=== PATIENT | female | born 1995 | race Caucasian/White ===

== ENCOUNTER 2016-08-15 09:41 | Emergency (ER) | payer OTHER ==
[~2016-08-15] VITALS: Ht 172.7 cm; Wt 77.1 kg
[2016-08-15 10:41] VITALS: BP 110/75
[2016-08-15] MEDS ORDERED: HYDROcodone-ACET 5/325MG TAB PO ONE (12:45)
== END 2016-08-15 16:00 | disposition home or self-care (01) ==
LOC: ER 09:42
DX: S40.012A Contusion of left shoulder, initial encounter (principal); M62.838 Other muscle spasm; S00.03XA Contusion of scalp, initial encounter; R51 Headache; R07.0 Pain in throat; M79.601 Pain in right arm; V43.52XA Car driver injured in collision with other type car in traffic accident, initial encounter; Y93.89 Activity, other specified; Y99.8 Other external cause status; Y92.89 Other specified places as the place of occurrence of the external cause
CPT/HCPCS: 70450; 72125; 73030; 81025

== ENCOUNTER 2017-02-10 00:19 | Emergency (ER) | payer OTHER ==
[~2017-02-10] VITALS: Ht 165.1 cm; Wt 65.8 kg
[2017-02-10 02:12] VITALS: BP 146/71
[2017-02-10] MEDS ORDERED: cefTRIAXone SOD 1,000 MG VL IM ONE (02:45)
[2017-02-10] MEDS ORDERED: LIDOCAINE 1% HCL (LOCAL ANESTH.) INJ 20ML MDV ONE (02:46)
== END 2017-02-10 03:12 | disposition home or self-care (01) ==
LOC: ER 00:22
DX: L03.116 Cellulitis of left lower limb (principal)
CPT/HCPCS: 96372; 99283; J0696; J2001